=== PATIENT | female | born 1980 | race Hispanic/Latino ===

== ENCOUNTER 2018-03-11 00:11 | Emergency (ER) | payer BC, OTHER ==
[~2018-03-11] VITALS: Ht 152.4 cm; Wt 113.4 kg
[2018-03-11] MEDS ORDERED: DIPHENHYDRAMINE HCL 25 MG CAP PO ONE (00:30)
[2018-03-11] MEDS ORDERED: CLINDAMYCIN PHOS 600 MG/ 4 ML VIAL IM ONE (00:30)
[2018-03-11] MEDS ORDERED: HYDROCODONE/APAP 10MG-325MG TAB PO ONE (00:30)
== END 2018-03-11 01:09 | disposition home or self-care (01) ==
LOC: ER 00:11
DX: L03.115 Cellulitis of right lower limb (principal)
CPT/HCPCS: 99283

== ENCOUNTER 2020-04-22 17:32 | Inpatient (IN) | payer OTHER ==
[~2020-04-22] VITALS: Ht 154.9 cm; Wt 115.4 kg
--- NOTE | 2020-04-22 17:50 | Emergency Department Note ---
History of Present Illnes History of Present Illness Chief Complaint: COVID PUI History of Present Illness This is a 40 year old female increasing dyspnea since 04/15/2020 with positive findings of COVID-19 URI. Historian: Patient Arrival Mode: Car Rubber Heel And Sole Press Tender Required: No Onset (how long ago): day(s) Radiation: Reports non-radiation Severity: moderate Onset quality: gradual Duration (how long): day(s) Timing of current episode: constant Progression: worsening Chronicity: new Context: Reports recent illness Relieving factors: none Exacerbating factors: none Associated symptoms: Reports fever/chills, Reports shortness of breath Treatments prior to arrival: none (ALEJO HAY DO) Past Medical/Family History Physician Review I have reviewed the patient's past medical and family history. Any updates have been documented here. (ALEJO HAY DO) Past Medical History Recent Fever: Yes Clinical Suspicion of Infectio: Yes New/Unexplained Change in Ment: No Past Medical History: Hypertension Other Medical History: Pseudotumor cerebri sleep apnea Past Surgical History: None (ALEJO HAY DO) Social History Smoking Cessation: Never Smoker Alcohol Use: None Any Illegal Drug Use: No (ALEJO HAY DO) Other Last Tetanus: utd (ALEJO HAY DO) Review of Systems Review of Systems Constitutional: Reports fever EENTM: Reports no symptoms Cardiovascular: Reports no symptoms Respiratory: Reports dyspnea Gastrointestinal: Reports no symptoms Genitourinary: Reports no symptoms Musculoskeletal: Reports no symptoms Integumentary: Reports no symptoms Neurological: Reports no symptoms Psychological: Reports no symptoms Endocrine: Reports no symptoms Hematological/Lymphatic: Reports no symptoms (ALEJO HAY DO) Physical Exam Related Data Allergies: Coded Allergies: celecoxib (Verified Allergy, Intermediate, rash, 03/13/15) Triage Vital Signs Vital Signs Date Time Temp Pulse Resp B/P (MAP) Pulse Ox O2 Delivery O2 Flow Rate FiO2 04/22/20 17:50 100.9 114 30 161/81 97 Room Air 04/22/20 18:25 2.0 Vital signs reviewed: Yes (ALEJO HAY DO) Physical Exam CONSTITUTIONAL Constitutional: Present morbidly obese, Present ill appearing HENT HENT: Present normocephalic, Present atraumatic, Present oropharynx clear/moist, Present nose normal HENT L/R: Present left ext ear normal, Present right ext ear normal EYES Eyes: Reports PERRL, Reports conjunctivae normal NECK Neck: Present ROM normal PULMONARY Pulmonary: Present respiratory distress (mild) CARDIOVASCULAR Cardiovascular: Present regular rhythm, Present heart sounds normal, Present capillary refill normal, Present tachycardia GASTROINTESTINAL Abdominal: Present soft, Present nontender, Present bowel sounds normal GENITOURINARY Genitourinary: Present exam deferred SKIN Skin: Present warm, Present dry MUSCULOSKELETAL Musculoskeletal: Present ROM normal NEUROLOGICAL Neurological: Present alert, Present oriented x 3, Present no gross motor or sensory deficits PSYCHOLOGICAL Psychological: Present mood/affect normal, Present judgement normal (ALEJO HAY DO) Results Laboratory Laboratory Laboratory Tests Test 04/22/20 19:52 04/22/20 18:10 White Blood Count 11.47 x10e3/uL (4.8-10.8) Red Blood Count 4.50 x10e6/uL (3.6-5.1) Hemoglobin 12.0 g/dL (12.0-16.0) Hematocrit 37.3 % (34.2-44.1) Mean Corpuscular Volume 82.9 fL (81-99) Mean Corpuscular Hemoglobin 26.7 pg (28-32) Mean Corpuscular Hemoglobin Concent 32.2 g/dL (31-35) Red Cell Distribution Width 14.3 % (11.7-14.4) Platelet Count 269 x10e3/uL (140-360) Neutrophils (%) (Auto) 89.6 % (38.7-80.0) Lymphocytes (%) (Auto) 8.2 % (18.0-39.1) Monocytes (%) (Auto) 1.6 % (4.4-11.3) Eosinophils (%) (Auto) 0.0 % (0.0-6.0) Basophils (%) (Auto) 0.1 % (0.0-1.0) Neutrophils # (Auto) 10.3 (2.1-6.9) Lymphocytes # (Auto) 0.9 (1.0-3.2) Monocytes # (Auto) 0.2 (0.2-0.8) Eosinophils # (Auto) 0.0 (0.0-0.4) Basophils # (Auto) 0.0 (0.0-0.1) Absolute Immature Granulocyte (auto 0.06 x10e3/uL (0-0.1) Sodium Level 136 mmol/L (136-145) Potassium Level 3.0 mmol/L (3.5-5.1) Chloride Level 107 mmol/L (98-107) Carbon Dioxide Level 19 mmol/L (22-29) Anion Gap 13.0 mmol/L (8-16) Blood Urea Nitrogen 9 mg/dL (7-26) Creatinine 0.81 mg/dL (0.57-1.11) Estimat Glomerular Filtration Rate > 60 ML/MIN (60-) BUN/Creatinine Ratio 11 (6-25) Glucose Level 218 mg/dL (74-118) Calcium Level 8.4 mg/dL (8.4-10.2) Total Bilirubin 0.7 mg/dL (0.2-1.2) Aspartate Amino Transf (AST/SGOT) 24 IU/L (5-34) Alanine Aminotransferase (ALT/SGPT) 32 IU/L (0-55) Alkaline Phosphatase 79 IU/L (40-150) Total Protein 7.5 g/dL (6.5-8.1) Albumin 3.8 g/dL (3.5-5.0) Globulin 3.7 g/dL (2.3-3.5) Albumin/Globulin Ratio 1.0 (0.8-2.0) Human Chorionic Gonadotropin, Qual Negative (NEGATIVE) Lab results reviewed: Yes (TYLER ADORNO MD) Imaging Imaging results reviewed: Yes Impressions EXAMINATION: CT of the chest with contrast, PE protocol. TECHNIQUE: Spiral CT images of the chest were performed from the lung apices through the level of the adrenal glands after the IV administration of 100 cc of Isovue 370. Thin section reconstructions were obtained with special concentration on the pulmonary arteries. Coronal and sagittal images were performed COMPARISON: <none> CLINICAL HISTORY:COVID positive, diagnosed with pneumonia 3 days ago DISCUSSION: Exam limited by suboptimal contrast bolus timing Lungs: Despite limitations, no filling defects are identified in the main, right or left pulmonary arteries to their segmental levels, to suggest pulmonary embolism. Bilateral multifocal groundglass opacities of rounded morphology are noted in the upper and lower lungs, predominantly peripherally based,, some of which show visible intralobular lines. Some of these groundglass opacities are more confluent in the posteromedial right lower lobe, however, no definite consolidation is noted. No pulmonary nodules. Airways: <The major airways are clear.> Pleura: <There is no evidence of pleural effusion or pneumothorax.> Heart and mediastinum: Thyroid is unremarkable. Heart size is normal. No pericardial effusion. Aorta is not aneurysmal. Main pulmonary artery measures 2.9 cm. Lymph nodes: No mediastinal, hilar or axillary adenopathy. Abdomen: The visualized portions of the liver, spleen, pancreas, adrenal glands and kidneys are unremarkable. Bones and soft tissues: No aggressive lytic or suspicious focal sclerotic lesions. Soft tissues are grossly unremarkable. IMPRESSION: 1. No CT evidence of pulmonary embolism. 2. Commonly reported imaging features of COVID-19 pneumonia are present. Other processes such as influenza pneumonia and organizing pneumonia, as can be seen with drug toxicity and connected tissue disease, can cause a similar imaging pattern. Signed by: Dr. Ruthie Da Silva M.D. on 04/22/2020 8:14 PM Dictated By: RUTHIE DA SILVA MD 13 Transcribed By: MARILYN on 04/22/202013 COPY TO: ALEJO HAY DO~ (TYLER ADORNO MD) Procedures 12 Lead ECG Interpretation ECG Interpretation : ECG: ECG 1 Rubber Heel And Sole Press Tender: Interpreted by ED physician Date: Apr 22, 2020 Time: 18:25 Prior ECG tracings: reviewed Rhythm: sinus rhythm Rate: normal BPM: 98 QRS axis: normal ST segments normal: Yes T wave inversion: V1-V6 Clinical Impression: non-specific ECG (ALEJO HAY DO) Assessment & Plan Medical Decision Making MDM Diff Dx : hypoxia, COVID - 19 URI, respiratory failure, Pulmonary embolus (ALEJO HAY DO) MDM I SPOKE WITH DR ROGERS, DR Mark STALLWORTH, AND LEFT A MESSAGE FOR DR COBB (TYLER ADORNO MD) Reassessment Reassessment time: 20:43 Reassessment PT RR 28, OXYGEN SATURATION 98% ON 2LPM, CV, HEART RATE NORMAL RESPIRATORY: RHONCHI THROUGHOUT (TYLER ADORNO MD) Assessment & Plan Final Impression: (1) Dyspnea (2) Viral pneumonia (3) COVID-19 (TYLER ADORNO MD) Depart Disposition: ADMITTED Home Meds Active Scripts Apixaban (Eliquis) 2.5 Mg Tablet, 1 TAB PO BID, #30 Prov:KALYAN FORD ATTIC FANS MECHANIC 04/27/20 Albuterol Sulfate (PROVENTIL HFA) 6.7 Gm Hfa.aer.ad, 2 INH INH Q4HR PRN for SHORTNESS OF BREATH, #1 INH Prov:KALYAN FORD ATTIC FANS MECHANIC 04/27/20 Reported Medications Acetazolamide (ACETAZOLAMIDE) 500 Mg Capsule.er, 500 MG PO BID 04/23/20 ALEJO HAY DO Apr 22, 2020 17:50 TYLER ADORNO MD Apr 22, 2020 20:45
--- OUTSIDE RECORDS SUMMARY | 2020-04-22 18:14 | XMS REPORT | Continuity of Care Document ---
Author Author [facility] t Organization [facility] Address [address] [place] [address] Phone Unavailable Care Team Providers Care Thermite Bomb Loader Name Role Phone NO, PCP PCP Unavailable Ivan JENKINS, Sherine Attphys Jeanine RN, Flor Aguirre Attphys Unavailable Shira Latif Attphys Doctor Unassigned, Name No Attphys Unavailable Anna Langley MD Attphys Payers Payer Name Policy Type Policy Number Effective Date Expiration Date S [place] [employer] [facility] [id number] I [facility] Problems Condition Name Condition Details Condition Category Status Onset Date Resolution Date Last Treatment Date Treating Clinician Comments Source HNP (herniated nucleus pulposus), cervical HNP (hernia sissy nucleus pulposus), cervical Disease Active 2018-06-28 00:00:00 Kacy Botello Cervical radiculopathy Cervical radiculopathy Disease Active 2018-06-28 00:00:[address] Allergies, Adverse Reactions, Alerts Allergy Name Allergy Type Status Severity Reaction(s) Onset Date Inacti ve Date Treating Clinician Comments Source Celecoxib Propensity to adverse reactions to drug Active Itching 2018-06-28 00:00:00 Octaviano Mazariegos t Celecoxib Allergy to Substance Active Moderate rash 2015-03-13 00:00:00 [facility] Family History Family Member Diagnosis Comments Start Date Stop Date Source Natural brother Diabetes [place] [facility] Natural father Hyperlipidemia [place] Natural father Hypertension Octaviano Botello Natural mother Diabetes [place] [facility] Natural mother Heart attack Octaviano Botello Natural sister Diabetes [place] [facility] Social History Social Habit Start Date Stop Date Quantity Comments Source Sex Assigned At Kacy p[place]rez [place] Alcohol intake 2018-06-28 00:00:00 2018-06-28 00:00:00 Current drinker of alcohol (finding) Octaviano Botello Alcohol Comment 2018-06-28 00:00:00 2018-06-28 00:00:00 occasional Octaviano Botello Smoking Status Start Date Stop Date Source Never smoker Octaviano andersen Medications Ordered Medication Name Filled Medication Name Start Date Stop Da te Current Medication? Ordering Clinician Indication Dosage Frequency Signature (SIG) Comments Components Source SUMATRIPTAN SUCCINATE ORAL 2018-06-28 15:39:23 Yes Take by mouth. Octaviano Botello acetaZOLAMIDE (DIAMOX) 500 mg capsule 2018-05-26 00:00:00 Y es acetazolamide ER 500 mg capsule,extended release Octaviano Botello Procedures This patient has no known procedures. Plan of Care Planned Activity Planned Date Details Comments Source Future Scheduled Test 2020-05-09 00:00:00 INFLUENZA VACCINE [code = INFLUENZA VACCINE] Octaviano Botello Future Scheduled Test 1999 00:00:00 Screening for mara gnant neoplasm of cervix (procedure) [code = 701914210] Octaviano andersen Encounters Start Date/Time End Date/Time Encounter Type Admission Type [facility] Care Department Encounter ID Source 2020-04-16 00:00:00 2020-04-16 00:00:00 Patient Secure Ms Sherine Love [facility] [id number] 2020-04-13 00:00:00 2020-04-13 00:00:00 Telephone Terrence Solorzano [facility] [id number] 2020-03-05 00:00:00 2020-03-05 00:00:00 Telephone Shira Maurer [facility] [id number] 2020-03-04 00:00:00 2020-03-04 00:00:00 Orders Only D octor Unassigned, Macdona [facility] [id number] 2020-01-18 08:39:29 2020-01-18 10:23:15 Office Visit [facility] Kami pantoja [facility] [id number] 2018-03-11 00:11:00 2018-03-11 01:09:00 Departed Emergency Room [facility] [id number] [facility] Results This patient has no known results.
--- OUTSIDE RECORDS SUMMARY | 2020-04-22 18:14 | XMS REPORT | Clinical Summary ---
Author Author [facility] Organization [facility] Address Unknown Phone Unavailable Care Team Providers Care Food Checkers And Cashiers Supervisor Name Role Phone Ines Hughes MD PCP Allergies Comments Active Allergy Reactions Severity Noted Date Celecoxib Itching 06/28/2018 Medications End Date Status Medication Sig Dispensed Refills Start Date Active acetaZOLAMIDE (DIAMOX) acetazolamide 0 01 500 mg capsule ER 500 mg 8 capsule,exten ded release Active SUMATRIPTAN SUCCINATE Take by 0 ORAL mouth. Active Problems Problem Noted Date HNP (herniated nucleus pulposus), cervical 8 Cervical radiculopathy 06/28/2018 Family History Medical History Relation Name Comments Diabetes Brother Hyperlipidemia Father Hypertension Father Diabetes Mother Heart attack Mother Diabetes Sister Diabetes Sister Relation Name Status Comments Brother Alive Father Alive Mother Alive Sister Alive Sister Alive Social History Date Tobacco Use Types Packs/Day Years Used Never Smoker Smokeless Tobacco: Never Used Drinks/Week oz/Week Comments Alcohol Use occasional Yes Sex Assigned at Date Recorded Not on file Industry Job Start Date Occupation Not on file Not on file Not on file Travel End Travel History Travel Start No recent travel history available. Last Filed Vital Signs Not on file Plan of Treatment Health Maintenance Due Date Last Done Comments CERVICAL CANCER SCREENING 1999 INFLUENZA VACCINE 05/09/2020 Results Not on fileafter 04/22/2019 Insurance Type Payer Benefit Subscriber ID Effective Phone Address Plan / Dates Group HMO/PPO [facility] x[facility] 2018-P THCARE resent CHOICE/CHO ICE + Advance Directives For more information, please contact: [phone] Patient Banquet Steward Explanation Type Date Recorded Advance Directives, Living Will and Medical Power of Flue Gas Analyst
[2020-04-22 18:27] LABS: BASOPHILS % 0.1 % (0.0-1.0); HEMATOCRIT 37.3 % (34.2-44.1); LYMPHOCYTES # (AUTO) 0.9 (1.0-3.2); LYMPHOCYTES % 8.2 % (18.0-39.1); MEAN CORPUSCULAR HEMOGLOBIN 26.7 pg (28-32); MEAN CORPUSCULAR HGB CONC 32.2 g/dL (31-35); MEAN CORPUSCULAR VOLUME 82.9 fL (81-99); MONOCYTES # (AUTO) 0.2 (0.2-0.8); MONOCYTES % 1.6 % (4.4-11.3); NEUTROPHILS # (AUTO) 10.3 (2.1-6.9); NEUTROPHILS % 89.6 % (38.7-80.0); PLATELET COUNT 269 x10e3/uL (140-360); RED CELL DISTRIBUTION WIDTH 14.3 % (11.7-14.4)
[2020-04-22 18:46] LABS: ALANINE AMINOTRANSFERASE 32 IU/L (0-55); ALBUMIN 3.8 g/dL (3.5-5.0); ALKALINE PHOSPHATASE 79 IU/L (40-150); BLOOD UREA NITROGEN 9 mg/dL (7-26); BUN/CREATININE RATIO 11 (6-25); CALCIUM 8.4 mg/dL (8.4-10.2); CARBON DIOXIDE 19 mmol/L (22-29); CHLORIDE 107 mmol/L (98-107); CREATININE, SERUM 0.81 mg/dL (0.57-1.11); EST GLOMERULAR FILTRATION RATE > 60 ML/MIN (60-); GLUCOSE 218 mg/dL (74-118); SODIUM 136 mmol/L (136-145)
[2020-04-22] MEDS ORDERED: ACETAMINOPHEN 325 MG TAB PO STA (19:01)
--- NOTE | 2020-04-22 20:17 | Diagnostic Imaging Report ---
EXAMINATION: CT of the chest with contrast, PE protocol. TECHNIQUE: Spiral CT images of the chest were performed from the lung apices through the level of the adrenal glands after the IV administration of 100 cc of Isovue 370. Thin section reconstructions were obtained with special concentration on the pulmonary arteries. Coronal and sagittal images were performed COMPARISON: <none> CLINICAL HISTORY:COVID positive, diagnosed with pneumonia 3 days ago DISCUSSION: Exam limited by suboptimal contrast bolus timing Lungs: Despite limitations, no filling defects are identified in the main, right or left pulmonary arteries to their segmental levels, to suggest pulmonary embolism. Bilateral multifocal groundglass opacities of rounded morphology are noted in the upper and lower lungs, predominantly peripherally based,, some of which show visible intralobular lines. Some of these groundglass opacities are more confluent in the posteromedial right lower lobe, however, no definite consolidation is noted. No pulmonary nodules. Airways: <The major airways are clear.> Pleura: <There is no evidence of pleural effusion or pneumothorax.> Heart and mediastinum: Thyroid is unremarkable. Heart size is normal. No pericardial effusion. Aorta is not aneurysmal. Main pulmonary artery measures 2.9 cm. Lymph nodes: No mediastinal, hilar or axillary adenopathy. Abdomen: The visualized portions of the liver, spleen, pancreas, adrenal glands and kidneys are unremarkable. Bones and soft tissues: No aggressive lytic or suspicious focal sclerotic lesions. Soft tissues are grossly unremarkable. IMPRESSION: 1. No CT evidence of pulmonary embolism. 2. Commonly reported imaging features of COVID-19 pneumonia are present. Other processes such as influenza pneumonia and organizing pneumonia, as can be seen with drug toxicity and connected tissue disease, can cause a similar imaging pattern. Signed by: Dr. Ron Da Silva M.D. on 04/22/2020 8:14 PM
[2020-04-22] MEDS ORDERED: DEXAMETHASONE SOD PHOS 10 MG/1 ML VIAL IV ONE (20:30)
[2020-04-22] MEDS ORDERED: CEFTRIAXONE SOD 1 GM/NS 50 ML 50 ML IV ONE (20:30)
[2020-04-22] MEDS ORDERED: ASPIRIN 81 MG CHEW TAB PO ONE (20:45)
[2020-04-22] MEDS ORDERED: SODIUM CHLORIDE 0.9% 1000ML 1,000 ML IV ONE (20:45)
[2020-04-22] MEDS ORDERED: CEFTRIAXONE SOD 1 GRAM/0.9% SOD CHL 50ML BAG IV SCH (20:45)
[2020-04-22] MEDS ORDERED: AZITHROMYCIN 500MG/SOD CHL 0.9% 250ML BAG IV SCH (20:45)
[2020-04-22] MEDS ORDERED: AZITHROMYCIN 500MG/NS 250 ML 250 ML IV ONE (21:00)
[2020-04-22 21:20] LABS: CREATINE KINASE MB 0.4 ng/mL (0-5.0)
[2020-04-22] MEDS: AZITHROMYCIN 500MG/SOD CHL 0.9% 250ML BAG IV SCH (21:29)
[2020-04-22] MEDS: CEFTRIAXONE SOD 1 GM VIAL IV SCH (21:30)
[2020-04-22 23:56] LABS: CLARITY,URINE SL CLOUDY (CLEAR); COLOR,URINE YELLOW (YELLOW); LEUKOCYTE ESTERASE ,URINE NEGATIVE (NEGATIVE); NITRITE,URINE NEGATIVE (NEGATIVE)
[2020-04-22 23:57] LABS: BILIRUBIN,URINE NEGATIVE (NEGATIVE); KETONES,URINE NEGATIVE (NEGATIVE); PROTEIN,URINE DIPSTICK NEGATIVE (NEGATIVE); URINE UROBILINOGEN 1 mg/dL (0.2 - 1)
[2020-04-22 23:57] LABS: INR 0.98; PROTHROMBIN TIME 13.5 seconds (11.9-14.5)
[2020-04-22 23:58] LABS: PARTIAL THROMBOPLASTIN TIME 37.1 seconds (23.8-35.5)
[2020-04-23] VITALS (15 sets, daily range): BP systolic 91–129; BP diastolic 47–89
[2020-04-23 00:01] LABS: BACTERIA,URINE FEW /HPF; EPITHELIAL CELLS,URINE FEW /LPF; RBC,URINE 0-5 /HPF (0-5); WBC,URINE (MAN) 0-5 /HPF (0-5)
[2020-04-23] MEDS ORDERED: ACETAZOLAMIDE500 M1 PO (00:14)
[2020-04-23 05:51] LABS: BASOPHILS % 0.1 % (0.0-1.0); HEMATOCRIT 35.7 % (34.2-44.1); HEMOGLOBIN 11.4 g/dL (12.0-16.0); LYMPHOCYTES # (AUTO) 0.7 (1.0-3.2); LYMPHOCYTES % 6.5 % (18.0-39.1); MEAN CORPUSCULAR HEMOGLOBIN 27.2 pg (28-32); MEAN CORPUSCULAR HGB CONC 31.9 g/dL (31-35); MEAN CORPUSCULAR VOLUME 85.2 fL (81-99); MONOCYTES # (AUTO) 0.1 (0.2-0.8); MONOCYTES % 1.1 % (4.4-11.3); NEUTROPHILS # (AUTO) 10.4 (2.1-6.9); NEUTROPHILS % 91.9 % (38.7-80.0); PLATELET COUNT 252 x10e3/uL (140-360); RED BLOOD COUNT 4.19 x10e6/uL (3.6-5.1); RED CELL DISTRIBUTION WIDTH 14.3 % (11.7-14.4)
[2020-04-23] MEDS ORDERED: ENOXAPARIN SOD INJ 60 MG/0.6 ML SYR SC SCH (06:00)
[2020-04-23 06:13] LABS: ALANINE AMINOTRANSFERASE 28 IU/L (0-55); ALBUMIN 3.5 g/dL (3.5-5.0); ALKALINE PHOSPHATASE 80 IU/L (40-150); ANION GAP 11.8 mmol/L (8-16); BLOOD UREA NITROGEN 10 mg/dL (7-26); BUN/CREATININE RATIO 14 (6-25); CARBON DIOXIDE 19 mmol/L (22-29); CHLORIDE 111 mmol/L (98-107); CREATININE, SERUM 0.74 mg/dL (0.57-1.11); EST GLOMERULAR FILTRATION RATE > 60 ML/MIN (60-); GLUCOSE 196 mg/dL (74-118); POTASSIUM 3.8 mmol/L (3.5-5.1); SODIUM 138 mmol/L (136-145)
[2020-04-23 06:41] LABS: CREATINE KINASE MB 0.3 ng/mL (0-5.0)
--- NOTE | 2020-04-23 08:24 | Diagnostic Imaging Report ---
TECHNIQUE: Frontal view of the chest. INDICATION: ^Y ^PNA ^[id number] ^0545 ^Y COMPARISON: CT chest dated the day prior. DISCUSSION: Limited evaluation due to portable technique and patient body habitus. Lines and hardware: Overlying EKG leads are noted Heart and mediastinum: Cardiomediastinal silhouette is within normal limits. Central vascular congestion is noted. Lungs and pleura: There are ill-defined interstitial airspace opacities diffusely. Negative for large effusion or pneumothorax. Soft tissues and bones: No acute abnormality. IMPRESSION: Ill-defined bilateral interstitial airspace opacities, better evaluated on CT chest from one day earlier. Signed by: Fransico Lee MD on 04/23/2020 8:20 AM
[2020-04-23] MEDS ORDERED: ACETAMINOPHEN 325 MG TAB PO PRN (08:30)
[2020-04-23] MEDS ORDERED: ENOXAPARIN INJ 80 MG/0.8 ML SYR SC SCH ×2 (09:00)
--- NOTE | 2020-04-23 09:20 | Consultation ---
DATE OF CONSULTATION: Pulmonary Critical Care Consultation CHIEF COMPLAINT: Dyspnea, fever, malaise and positive COVID test. HISTORY OF PRESENT ILLNESS: The patient is a 40-year-old woman. She reports a sore throat and malaise for about 10-12 days. She went for an initial COVID test that was negative, but continued to have symptoms and repeated her COVID test about 8 days ago as an outpatient. It was positive. The patient now complains of shortness of breath for about 5 days. She has some low-grade fevers for 3 days. She denies nausea or vomiting. She came to the emergency department last night. Her CT scan was consistent with COVID. She received some IV fluids and oxygen. She also received some dexamethasone and now reports some improvement. PAST MEDICAL HISTORY: 1. The patient denies any prior asthma or COPD. 2. She denies diabetes. 3. She denies any prior cardiac disease. ALLERGIES: THE PATIENT IS ALLERGIC TO CELEBREX. SOCIAL HISTORY: The patient's sister is in the hospital with COVID. Her parents were also in the hospital with COVID. Her ibujdrx-se-gau also has COVID. Apparently, the family all attended a graduation libertarian with someone may have been positive for COVID. She is not an active smoker. She is not a drinker. REVIEW OF SYSTEMS: There are some fevers as noted above. There is no headache. No neck pain. She is not complaining of any chest pain. She has no wheezing. She does have some dyspnea. She has some mild cough. She has no abdominal pain. There is no nausea or vomiting. She has no leg swelling. PHYSICAL EXAMINATION: VITAL SIGNS: The patient is afebrile. The blood pressure is 95/63, saturation is 97% on 2 L. The pulse is 66. HEENT: No facial swelling or erythema. LYMPHATIC: No submandibular, cervical, or supraclavicular adenopathy. CARDIAC: Regular rate and rhythm with normal S1, S2. LUNGS: Auscultation of lungs reveals rhonchorous breath sounds bilaterally. There is no wheezing. ABDOMEN: Soft, nontender. There is no rebound or guarding. EXTREMITIES: No leg edema or calf tenderness. There is no cyanosis or clubbing. SKIN: No rashes. NEUROLOGICAL: No focal abnormalities. LABORATORY DATA: White blood cell count is 11.3. Hemoglobin is 11.4. The platelet count is 252. The BUN to creatinine ratio is 10 to 0.74. The carbon dioxide is 19 and the other electrolytes are within normal limits. The albumin is 3.5. RADIOGRAPHIC DATA: CT scan shows peripheral nodular appearing ground-glass opacities suggestive of possible COVID infection. IMPRESSION: 1. Viral pneumonia and coronavirus disease-19 infection. 2. Low serum bicarbonate. PLAN: 1. Continue the patient on oxygen at 2 L. 2. Lovenox 0.5 mg daily for deep venous thrombosis prophylaxis. 3. Continue Zithromax and Rocephin. 4. Dexamethasone. 5. Discussed remdesivir with Infectious Disease. Regan Davalos MD [facility] /[id number]
[2020-04-23] MEDS: ASCORBIC ACID 500 MG TAB PO SCH (12:51)
[2020-04-23] MEDS: CHOLECALCIFEROL 400 UNIT TAB PO SCH (12:51)
[2020-04-23] MEDS: ZINC SULFATE 220 MG CAP PO SCH (12:51)
[2020-04-23 13:12] LABS: CREATINE KINASE MB 0.4 ng/mL (0-5.0)
--- NOTE | 2020-04-23 17:50 | NUR ---
PATIENT RECEIVED FROM [facility] ICU TO OBS PER WHEEL CHAIR. ALERT AND VERBALLY RESPONSIVE, ABLE TO TRANSFER SELF FROM WHEEL CHAIR TO BED. REQUESTED AND RECEIVED A CUP OF ICE WATER. BED IN LOWER POSITION, CALL LIGHT AT REACH.
[2020-04-23] MEDS ORDERED: REMDESIVIR 200MG/NS 100ML 200 MG in SODIUM CHLORIDE 0.9% 100 ML 100 ML IV ONE (18:30)
[2020-04-23] MEDS ORDERED: HYDRALAZINE HCL 20 MG/ML VIAL IV PRN (18:45)
[2020-04-23] MEDS ORDERED: POLYETHYLENE GLYCOL 3350 17 GM PACK PO PRN (18:45)
[2020-04-23] MEDS ORDERED: TEMAZEPAM 7.5 MG CAP PO PRN (18:45)
[2020-04-23] MEDS ORDERED: ONDANSETRON HCL INJ 2MG/ML 2ML 2 MG/ML VIAL IV PRN (18:45)
[2020-04-23] MEDS ORDERED: BENZONATATE 100 MG CAP PO PRN (19:15)
[2020-04-23] MEDS: DEXAMETHASONE SOD PHOS 10 MG/1 ML VIAL IV SCH (20:26)
[2020-04-23] MEDS: CEFTRIAXONE SOD 1 GM VIAL IV SCH (20:47)
[2020-04-23] MEDS ORDERED: TEMAZEPAM 15 MG CAP PO PRN (21:00)
[2020-04-23] MEDS ORDERED: ZOLPIDEM TARTRATE 5 MG TAB PO PRN (21:00)
--- NOTE | 2020-04-23 23:00 | History and Physical ---
CONSULTING PHYSICIANS: Dr. Walter Solares with Infectious Disease and Dr. Regan Davalos with Pulmonology Critical Care Medicine. CHIEF COMPLAINT: Concern for COVID infection. HISTORY OF PRESENT ILLNESS: The patient is a 40-year-old female, admitted via the emergency department with complaints of malaise and sore throat for about 10 to 12 days. The patient reports having an initial COVID test that was negative, but had persistent signs and symptoms and did a repeat COVID test 8 days ago (4 days after the initial test) in [facility], that resulted positive. Apparently, her family attended a graduation green party with someone who may have had COVID; the patient's sister is currently in this hospital in ICU on a ventilator with COVID for the past few weeks. Her parents were both in the hospital with COVID and her brother is at home on oxygen with COVID. Her mother is also on oxygen at home. PAST MEDICAL HISTORY: Pseudotumor cerebri with intracranial hypertension, obstructive sleep apnea with use of CPAP at home, which the patient states her will bring to the hospital, 6 mm disk herniation in the neck. PAST SURGICAL HISTORY: None. FAMILY HISTORY: As per history of present illness, as well as mother, sister, and brother all have diabetes. Father has hypertension. SOCIAL HISTORY: The patient denies any use of tobacco or illicit drugs. She uses alcohol on occasion. She lives with her and 2 children. Her oldest daughter of severe aplastic anemia, (bone marrow failure) at age 6. 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 HOME MEDICATIONS: Acetazolamide (Diamox) 500 mg b.i.d. at home. REVIEW OF SYSTEMS: A 14-point review of systems was completed. CONSTITUTIONAL: Malaise, fever with low-grade temps for 2 or 3 days, running about 100.5, sore throat, shortness of breath for the last 5 days, coughing fits, especially with activity, thick white phlegm, mild chest pain, heartburn, burping, last bowel movement on 04/22. NEUROLOGIC: Headache from time to time. ENDOCRINE: Possibly "borderline diabetes." PHYSICAL EXAMINATION: VITAL SIGNS: Temperature 97.2, T-max 101.5, pulse 66, blood pressure 96/53, subsequently 111/67, respirations 22, oxygen saturation 95%. Height 5 feet 0, weight 250 pounds, BMI 48.81. GENERAL: Supine, in no acute distress. Head of bed elevated. Able to carry on conversation. LUNGS: Rhonchi throughout, on oxygen at 3 L/minute via nasal cannula. HEENT: EOMI. Moist mucous membranes. NECK: Supple. No lymphadenopathy. Thyromegaly, or JVD. CARDIOVASCULAR: Regular rate and rhythm. No murmur. ABDOMEN: Bowel sounds positive. Soft, obese. EXTREMITIES: No pitting edema. No clubbing, cyanosis, or signs of DVT. NEUROLOGICAL: GCS 15. Nonfocal. LABORATORY DATA: WBC 11.33, hemoglobin 11.4, hematocrit 35.7, platelets 252, neutrophils 91.9%. Sodium 138, potassium 3.8, chloride 111, CO2 of 19, anion gap 11.8, BUN 10, creatinine 0.74, estimated GFR greater than 60, glucose 196, calcium 8, total bilirubin 0.5, AST 19, ALT 28, alkaline phosphatase 80, total protein 7.1, albumin 3.5. HCG, qualitative negative. Cardiac enzymes x3 were negative. Creatine kinase 31, then 26, then 19. Urinalysis was negative. Urine; pH 7.5, specific gravity 1.020, negative for nitrites, negative for leukocyte esterase, few urine bacteria. On 04/22, Coronavirus PCR positive. On 04/22, blood cultures x2 and urine culture collected and pending. IMAGING/OTHER: A 12-lead EKG on 04/22, normal sinus rhythm with heart rate 98. A 12-lead ECG on 04/23, normal sinus rhythm, heart rate 66. CT of the chest on 04/22, negative for pulmonary embolism, commonly reported imaging features of COVID-19 pneumonia are present, other processes such as influenza pneumonia and organizing pneumonia can be seen with drug toxicity and connective tissue disease can cause a similar imaging pattern. On 04/23, chest x-ray, ill-defined bilateral interstitial airspace opacities, better evaluated on CT chest from one day earlier. ASSESSMENT AND PLAN: 1. Viral community-acquired pneumonia with coronavirus disease 2018, present on admission. Pulmonology/Critical Care Medicine and Infectious Disease have been consulted. Remdesivir every 24 hours has been initiated. Continue Rocephin and azithromycin IV antibiotics. Complete dexamethasone 6 mg daily. Continue Lovenox 40 mg subcu daily, ascorbic acid and zinc sulfate daily. Droplet isolation. 2. Dyspnea. Continue supplemental oxygen. Physical Therapy to eval and treat. Bathroom privileges, bedside commode. Monitor pulmonary status closely. 3. Obstructive sleep apnea. Continue use of home CPAP once her delivers it to the hospital. Can use hospital's CPAP p.r.n. at 12:00 a.m. 4. Morbid obesity with BMI 48.81. Dietary restrictions, currently on a cardiac diet. 5. Hyperglycemia, rule out type 2 diabetes mellitus. Serum blood glucose 196. Hemoglobin A1c in the morning. May need to change diet to an ADA diet and monitor fingerstick blood glucose levels if positive. 6. Pseudotumor cerebri. Monitor headaches. Monitor for any obvious signs of increased intracranial pressure. Tessalon Perles for cough. 7. Prophylaxis. Pepcid and Lovenox. Inpatient billing code [id number]. Time spent 60 minutes. Dictated by Real Duong NP MD [facility]/MODL /[id number]
--- NOTE | 2020-04-23 23:17 | NUR ---
infectious disease consultation Patient seen and examined chart reviewed CHIEF COMPLAINT: Concern for COVID infection. HISTORY OF PRESENT ILLNESS: The patient is a 40-year-old female, admitted via the emergency department with complaints of malaise and sore throat for about 10 to 12 days. The patient reports having an initial COVID test that was negative, but had persistent signs and symptoms and did a repeat COVID test 8 days ago (4 days after the initial test) in [facility], that resulted positive. Patient came to the emergency room to be evaluated Apparently, her family attended a graduation libertarian with someone who may have had COVID; the patient's sister is currently in this hospital in ICU on a ventilator with COVID for the past few weeks. Her parents were both in the hospital with COVID and her brother is at home on oxygen with COVID. Her mother is also on oxygen at home. PAST MEDICAL HISTORY: Pseudotumor cerebri with intracranial hypertension, obstructive sleep apnea with use of CPAP at home, which the patient states her will bring to the hospital, 6 mm disk herniation in the neck. PAST SURGICAL HISTORY: None. FAMILY HISTORY: As per history of present illness, as well as mother, sister, and brother all have diabetes. Father has hypertension. SOCIAL HISTORY: The patient denies any use of tobacco or illicit drugs. She uses alcohol on occasion. She lives with her and 2 children. Her oldest daughter of severe aplastic anemia, (bone marrow failure) at age 6. 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 HOME MEDICATIONS: Acetazolamide (Diamox) 500 mg b.i.d. at home. REVIEW OF SYSTEMS: A 14-point review of systems was completed. As mentioned above CONSTITUTIONAL: Malaise, fever with low-grade temps for 2 or 3 days, running about 100.5, sore throat, shortness of breath for the last 5 days, coughing fits, especially with activity, thick white phlegm, mild chest pain, heartburn, burping, last bowel movement on 04/22. NEUROLOGIC: Headache from time to time. ENDOCRINE: Possibly "borderline diabetes." PHYSICAL EXAMINATION: patient seen to be alert oriented does not seem to be in acute distress VITAL SIGNS: Temperature 97.2, T-max 101.5, pulse 66, blood pressure 96/53, subsequently 111/67, respirations 22, oxygen saturation 95%. Height 5 feet 0, weight 250 pounds, BMI 48.81. GENERAL: Supine, in no acute distress. Head of bed elevated. Able to carry on conversation. LUNGS: Rhonchi throughout, on oxygen at 3 L/minute via nasal cannula. HEENT: EOMI. Moist mucous membranes. NECK: Supple. No lymphadenopathy. Thyromegaly, or JVD. CARDIOVASCULAR: Regular rate and rhythm. No murmur. ABDOMEN: Bowel sounds positive. Soft, obese. EXTREMITIES: No pitting edema. No clubbing, cyanosis, or signs of DVT. NEUROLOGICAL: GCS 15. Nonfocal. LABORATORY DATA: WBC 11.33, hemoglobin 11.4, hematocrit 35.7, platelets 252, neutrophils 91.9%. Sodium 138, potassium 3.8, chloride 111, CO2 of 19, anion gap 11.8, BUN 10, creatinine 0.74, estimated GFR greater than 60, glucose 196, calcium 8, total bilirubin 0.5, AST 19, ALT 28, alkaline phosphatase 80, total protein 7.1, albumin 3.5. HCG, qualitative negative. Cardiac enzymes x3 were negative. Creatine kinase 31, then 26, then 19. Urinalysis was negative. Urine; pH 7.5, specific gravity 1.020, negative for nitrites, negative for leukocyte esterase, few urine bacteria. On 04/22, Coronavirus PCR positive. On 04/22, blood cultures x2 and urine culture collected and pending. IMAGING/OTHER: A 12-lead EKG on 04/22, normal sinus rhythm with heart rate 98. A 12-lead ECG on 04/23, normal sinus rhythm, heart rate 66. CT of the chest on 04/22, negative for pulmonary embolism, commonly reported imaging features of COVID-19 pneumonia are present, other processes such as influenza pneumonia and organizing pneumonia can be seen with drug toxicity and connective tissue disease can cause a similar imaging pattern. On 04/23, chest x-ray, ill-defined bilateral interstitial airspace opacities, better evaluated on CT chest from one day earlier. ASSESSMENT AND PLAN: 1. Viral community-acquired pneumonia with coronavirus disease 2019, we will put the patient on droplet and contact isolation patient is infectious for 3 weeks post onset of symptoms. Discussed with the patient about RMZV WELL CONVALESCENT PLASMA THE PATIENT IS INTERESTED IN OUR mcv BUT NOT INTERESTED IN CONVALESCENT PLASMA pATIENT IS AWARE STILL INVESTIGATIONAL DRUG PATIENT IS AWAKE BUT SIDE EFFECTS iNFORMATION WAS GIVEN WAS GIVEN PUT THE PATIENT ON OXYGEN NEEDED DEXAMETHASONE 6 MG DAILY FOR 10 DAYS lOVENOX 40 SUBCU EVERY 12 HOURS SUPPLEMENTAL MULTIVITAMIN AND VITAMIN d AND VITAMIN c AND ZINC. 2. Dyspnea. Continue supplemental oxygen. Physical Therapy to eval and treat. Bathroom privileges, bedside commode. Monitor pulmonary status closely. 3. Obstructive sleep apnea. Continue use of home CPAP once her delivers it to the hospital. Can use hospital's CPAP p.r.n. at 12:00 a.m. 4. Morbid obesity with BMI 48.81. Dietary restrictions, currently on a cardiac diet. 5. Hyperglycemia, rule out type 2 diabetes mellitus. Serum blood glucose 196. Hemoglobin A1c in the morning. DIET LOSING WEIGHT WE DISCUSSED THE PATIENT 6. Pseudotumor cerebri. Monitor headaches. Monitor for any obvious signs of increased intracranial pressure. Tessalon Perles for cough.
[2020-04-23] MEDS: AZITHROMYCIN 500MG/SOD CHL 0.9% 250ML BAG IV SCH (23:21)
[2020-04-24] VITALS (8 sets, daily range): BP systolic 97–110; BP diastolic 55–64
[2020-04-24 05:26] LABS: BASOPHILS % 0.1 % (0.0-1.0); HEMATOCRIT 34.5 % (34.2-44.1); LYMPHOCYTES # (AUTO) 0.7 (1.0-3.2); LYMPHOCYTES % 5.9 % (18.0-39.1); MEAN CORPUSCULAR HEMOGLOBIN 26.9 pg (28-32); MEAN CORPUSCULAR HGB CONC 31.9 g/dL (31-35); MEAN CORPUSCULAR VOLUME 84.4 fL (81-99); MONOCYTES # (AUTO) 0.1 (0.2-0.8); MONOCYTES % 1.1 % (4.4-11.3); NEUTROPHILS # (AUTO) 10.4 (2.1-6.9); NEUTROPHILS % 92.5 % (38.7-80.0); PLATELET COUNT 261 x10e3/uL (140-360); RED BLOOD COUNT 4.09 x10e6/uL (3.6-5.1); RED CELL DISTRIBUTION WIDTH 13.9 % (11.7-14.4)
[2020-04-24 05:50] LABS: ALANINE AMINOTRANSFERASE 26 IU/L (0-55); ALBUMIN 3.5 g/dL (3.5-5.0); ALKALINE PHOSPHATASE 76 IU/L (40-150); ANION GAP 11.6 mmol/L (8-16); BLOOD UREA NITROGEN 15 mg/dL (7-26); BUN/CREATININE RATIO 20 (6-25); CALCIUM 8.4 mg/dL (8.4-10.2); CARBON DIOXIDE 20 mmol/L (22-29); CHLORIDE 110 mmol/L (98-107); CREATININE, SERUM 0.74 mg/dL (0.57-1.11); EST GLOMERULAR FILTRATION RATE > 60 ML/MIN (60-); GLUCOSE 200 mg/dL (74-118); POTASSIUM 3.6 mmol/L (3.5-5.1); SODIUM 138 mmol/L (136-145)
[2020-04-24 05:53] LABS: CHOL/HDL RATIO 2.4 (3.0-3.6); MAGNESIUM 2.2 MG/DL (1.3-2.1); PHOSPHORUS 2.1 MG/DL (2.3-4.7)
[2020-04-24] MEDS: ENOXAPARIN SOD INJ 40 MG/0.4 ML SYR SC SCH (06:00)
[2020-04-24 06:13] LABS: THYROID STIMULATING HORMONE 0.218 uIU/mL (0.350-4.940)
--- NOTE | 2020-04-24 07:46 | Diagnostic Imaging Report ---
TECHNIQUE: Frontal view of the chest. INDICATION: 40-year-old woman with pneumonia. COMPARISON: Chest radiograph 04/23/2020. FINDINGS: LINES/TUBES/DEVICES: None. LUNGS: Decreased aeration of the lungs. Persistent patchy interstitial and bilateral airspace opacities, most prominent in the right lower lung zone. PLEURA: No pneumothorax or significant pleural effusion. HEART AND MEDIASTINUM: The cardiomediastinal silhouette is unchanged. SOFT TISSUES AND BONES: Unremarkable. IMPRESSION: Decreased aeration of the lungs. Otherwise, no significant change since 04/23/2020. Signed by: Liz Marie MD on 04/24/2020 7:43 AM
[2020-04-24] MEDS: DOCUSATE SODIUM 100 MG CAP PO SCH ×2 (08:55→16:27)
[2020-04-24] MEDS: FAMOTIDINE 20 MG/2 ML VIAL IV SCH ×2 (08:55→16:27)
[2020-04-24] MEDS: ZINC SULFATE 220 MG CAP PO SCH (08:55)
[2020-04-24] MEDS: CHOLECALCIFEROL 400 UNIT TAB PO SCH (08:55)
[2020-04-24] MEDS: ASCORBIC ACID 500 MG TAB PO SCH (08:55)
[2020-04-24] MEDS ORDERED: POTASSIUM PHOSPHATE 15 MM in SODIUM CHLORIDE 0.9% 250ML 250 ML IV ONE (09:00)
[2020-04-24] MEDS ORDERED: METFORMIN HCL 500 MG TAB CR PO ONE (09:15)
[2020-04-24] MEDS ORDERED: DEXTROSE 50% SYRINGE 50 ML IV PRN (11:15)
--- NOTE | 2020-04-24 11:27 | Progress Note ---
DATE: SUBJECTIVE: The patient feels better. She is still receiving remdesivir. PHYSICAL EXAMINATION: VITAL SIGNS: Blood pressure is 100/55, pulse is 64. Saturation is 96%. HEENT: Shows no facial swelling or erythema. LYMPHATIC: Shows no submandibular, cervical, or supraclavicular adenopathy. CARDIAC: Reveals a regular rate and rhythm with normal S1, S2. There are no murmurs or rubs. LUNGS: Auscultation of lungs reveals rhonchorous breath sounds bilaterally. There is no wheezing. ABDOMEN: Soft and nontender. There is no rebound or guarding. EXTREMITIES: Shows no leg edema or calf tenderness. There is no cyanosis or clubbing. SKIN: Shows no rashes. NEUROLOGICAL: Shows no focal abnormalities. IMPRESSION: 1. Viral pneumonia and COVID-19 infection. 2. Obstructive sleep apnea. 3. Pseudotumor cerebri. 4. Type 2 diabetes mellitus. PLAN: 1. Continue current antibiotics. 2. Complete remdesivir. 3. Complete dexamethasone. 4. Monitor blood sugars and give insulin as needed. 5. CPAP at night. Regan Davalos MD [facility]/MODL /[id number]
[2020-04-24] MEDS: INSULIN REGULAR, HUMAN 100 UNIT/1 ML 3ML VIAL SQ SCH ×3 (11:47→20:59)
[2020-04-24] MEDS: REMDESIVIR 100MG/NS 100ML 100 MG in SODIUM CHLORIDE 0.9% 100 ML 100 ML IV SCH (13:40)
[2020-04-24] MEDS ORDERED: SODIUM CHLORIDE 0.9% 250ML 250 ML ONE (13:42)
--- NOTE | 2020-04-24 17:06 | NUR ---
Skilled PT services not indicated at this time since patient is able to perform functional mobility without assistance. Thank you. Addendum: 04/24/20 at 1707 by Mendez cleaning PT Amended: Links added.
--- NOTE | 2020-04-24 20:31 | Progress Note ---
DATE: SUBJECTIVE: Ms. Bridgette Florentino is feeling better. She is still short of breath. She is on 3 L though. There is no new complaint. She is on remdesivir, Rocephin, azithromycin, and dexamethasone, vitamin D and zinc also and oxygen and Lovenox. PHYSICAL EXAMINATION: GENERAL: She is currently alert and oriented. Does not seem to be in acute distress. VITAL SIGNS: Stable, currently afebrile. HEENT: She is not icteric. NECK: Supple. CHEST: Crackles bilateral. HEART: S1 and S2. ABDOMEN: Soft. Bowel sounds present. EXTREMITIES: No edema. SKIN: No rash. IMPRESSION: COVID-19, respiratory failure. To finish the course of treatment as planned. Discussed with the patient. Answered all her question. Follow up in the morning. MD YARI Goldberg/LIVE /[id number]
[2020-04-24] MEDS: CEFTRIAXONE SOD 1 GM VIAL IV SCH (20:48)
[2020-04-24] MEDS: DEXAMETHASONE SOD PHOS 10 MG/1 ML VIAL IV SCH (20:48)
[2020-04-24] MEDS: AZITHROMYCIN 500MG/SOD CHL 0.9% 250ML BAG IV SCH (21:00)
--- NOTE | 2020-04-24 23:07 | Progress Note ---
DATE: 04/24/2020 SUBJECTIVE: The patient states she has mild chest pain with deep inspiration. She is able to achieve 1500 mL with incentive spirometry. Sore throat has improved, it is better. She does complain of right ear tinnitus or ringing of the ear. She states that she was out of bed, took a shower today. Does experience dyspnea on exertion with activity. She has coughing "fits" at times. She reports that she did not work with physical therapy at all today. Apparently, they signed off documenting that she was independent in her mobility. The patient reports that her is currently in the ER at this facility with COVID and atrial fibrillation. Her sister (Nery Decker) is in the ICU here on a ventilator with COVID. OBJECTIVE: VITAL SIGNS: Temperature 98.2, pulse 65, respirations 20, blood pressure 100/64, oxygen saturation 98%. GENERAL: Supine in bed. No acute distress. LUNGS: Respirations even, nonlabored. Oxygen at 2 L/minute via nasal cannula. HEENT: EOMI. NECK: Supple. CARDIOVASCULAR: Regular rate and rhythm. No murmur. ABDOMEN: Bowel sounds positive. Soft, obese. EXTREMITIES: No pitting edema. No clubbing, cyanosis, or signs of DVT. NEUROLOGICAL: GCS 15. Nonfocal. DIAGNOSTIC STUDIES/LABORATORY DATA: WBCs 11.19, hemoglobin 11, hematocrit 34.5, platelets 261. Sodium 138, potassium 3.6, chloride 110, CO2 20, anion gap 11.6, BUN 15, creatinine 0.74, estimated GFR greater than 60, glucose 200, hemoglobin A1c 6.7%, calcium 8.4, phosphorus 2.1, magnesium 2.2, total bilirubin 0.4, AST 20, ALT 26, alkaline phosphatase 76, total protein 7, albumin 3.5. Triglyceride 78, cholesterol 120, LDL 55, HDL 49, TSH 0.218. IMAGING: On 04/24 chest x-ray, decreased aeration of the lungs, otherwise no significant change since 04/23 chest x-ray. ASSESSMENT AND PLAN: 1. Viral community-acquired pneumonia with coronavirus disease-2019, present on admission. Pulmonary/Critical Care Medicine and Infectious Disease following. Complete Remdesivir. dexamethasone, Rocephin, azithromycin. Continue Lovenox, ascorbic acid, and zinc sulfate. Maintain droplet isolation. She does have dyspnea on exertion. Continue supplemental oxygen and wean as tolerated. Monitor pulmonary status closely. Encourage incentive spirometry. 2. Obstructive sleep apnea, home CPAP machine is at bedside. Continue to use at bedtime. 3. Controlled type 2 diabetes mellitus with hyperglycemia. Hemoglobin A1c 6.7%, newly diagnosed diabetic. Fingerstick blood glucose levels not documented. Blood glucose assessment ordered q.6 hours before meals and at bedtime at 1107 this morning. Continue low-dose insulin sliding scale, especially considering she is on the steroid, dexamethasone, metformin 500 mg p.o. daily. Cardiac diet changed to 1800-calorie ADA diet. 4. Mild acute hypophosphatemia. Phosphorus level 2.1 and potassium level 3.6. Potassium phosphate 15 millimoles IV once ordered. 5. Pseudotumor cerebri. Monitor headaches. Monitor for any obvious signs of increased intracranial pressure. Continue Tessalon Perles p.r.n. for cough. 6. Prophylaxis. Pepcid and Lovenox. Inpatient, billing code [id number], time spent 35 minutes. Dictated by Real Duong NP MD [facility]/MODL /[id number]
[2020-04-25] VITALS (9 sets, daily range): BP systolic 90–113; BP diastolic 50–74
[2020-04-25 07:16] LABS: BASOPHILS % 0.1 % (0.0-1.0); HEMATOCRIT 34.6 % (34.2-44.1); HEMOGLOBIN 10.9 g/dL (12.0-16.0); LYMPHOCYTES # (AUTO) 0.9 (1.0-3.2); LYMPHOCYTES % 13.4 % (18.0-39.1); MEAN CORPUSCULAR HEMOGLOBIN 26.3 pg (28-32); MEAN CORPUSCULAR HGB CONC 31.5 g/dL (31-35); MEAN CORPUSCULAR VOLUME 83.6 fL (81-99); MONOCYTES # (AUTO) 0.1 (0.2-0.8); NEUTROPHILS # (AUTO) 5.8 (2.1-6.9); NEUTROPHILS % 83.9 % (38.7-80.0); PLATELET COUNT 306 x10e3/uL (140-360); RED BLOOD COUNT 4.14 x10e6/uL (3.6-5.1); RED CELL DISTRIBUTION WIDTH 14.4 % (11.7-14.4)
[2020-04-25 07:34] LABS: ALANINE AMINOTRANSFERASE 32 IU/L (0-55); ALBUMIN 3.4 g/dL (3.5-5.0); ALKALINE PHOSPHATASE 72 IU/L (40-150); ANION GAP 14.8 mmol/L (8-16); BLOOD UREA NITROGEN 21 mg/dL (7-26); BUN/CREATININE RATIO 28 (6-25); CALCIUM 8.6 mg/dL (8.4-10.2); CARBON DIOXIDE 19 mmol/L (22-29); CHLORIDE 113 mmol/L (98-107); CREATININE, SERUM 0.76 mg/dL (0.57-1.11); EST GLOMERULAR FILTRATION RATE > 60 ML/MIN (60-); GLUCOSE 179 mg/dL (74-118); POTASSIUM 3.8 mmol/L (3.5-5.1); SODIUM 143 mmol/L (136-145)
[2020-04-25] MEDS: ENOXAPARIN SOD INJ 40 MG/0.4 ML SYR SC SCH (07:39)
--- NOTE | 2020-04-25 09:02 | Diagnostic Imaging Report ---
EXAMINATION: CHEST SINGLE (PORTABLE) INDICATION: Shortness breath, viral pneumonia COMPARISON: Chest radiograph 04/24/2020 FINDINGS: LINES/TUBES:None LUNGS:The lungs are moderately inflated. Unchanged bilateral lower lung predominant opacities. PLEURA:No pleural effusion or pneumothorax. MEDIASTINUM:The cardiomediastinal silhouette appears normal in size and shape. BONES/SOFT TISSUES:No acute osseous injury. ABDOMEN:No free air under the diaphragm. IMPRESSION: No significant interval change. Signed by: Krishna Sanchez MD on 04/25/2020 8:59 AM
[2020-04-25] MEDS: INSULIN REGULAR, HUMAN 100 UNIT/1 ML 3ML VIAL SQ SCH ×4 (09:30→21:00)
[2020-04-25] MEDS: ASCORBIC ACID 500 MG TAB PO SCH (09:40)
[2020-04-25] MEDS: FAMOTIDINE 20 MG/2 ML VIAL IV SCH ×2 (09:40→17:33)
[2020-04-25] MEDS: ZINC SULFATE 220 MG CAP PO SCH (09:40)
[2020-04-25] MEDS: DOCUSATE SODIUM 100 MG CAP PO SCH ×2 (09:40→17:33)
[2020-04-25] MEDS: CHOLECALCIFEROL 400 UNIT TAB PO SCH (09:40)
[2020-04-25] MEDS: METFORMIN HCL 500 MG TAB PO SCH (09:40)
--- NOTE | 2020-04-25 12:30 | Progress Note ---
DATE: SUBJECTIVE: The patient is afebrile. She feels better overall. Her oxygen has been decreased to 1.5 L. PHYSICAL EXAMINATION: VITAL SIGNS: Blood pressure is 102/50 and the pulse is 53. Saturation is 96%. HEENT: Shows no facial swelling or erythema. LYMPHATIC: Shows no submandibular, cervical, or supraclavicular adenopathy. CARDIAC: Reveals regular rate and rhythm with normal S1 and S2. LUNGS: Auscultation of lungs reveals rhonchorous breath sounds bilaterally. There is no wheezing. ABDOMEN: Soft and nontender. There is no rebound or guarding. EXTREMITIES: Shows no leg edema or calf tenderness. There is no cyanosis or clubbing. SKIN: Shows no rashes. NEUROLOGICAL: Shows no focal abnormalities. LABORATORY DATA: White blood cell count is 6.9, hemoglobin is 10.9, and the platelet count is 306. The BUN to creatinine ratio is normal and the bicarbonate is 19. The chloride is 113. IMPRESSION: 1. Viral pneumonia and COVID-19 infection. 2. Obstructive sleep apnea. 3. Diabetes. PLAN: 1. Continue oxygen during the day and CPAP at night. 2. Complete remdesivir. 3. Complete dexamethasone. 4. Complete Zithromax and Rocephin. 5. Lovenox. 6. Insulin as needed. Regan Davalos MD [facility]/MODL /[id number]
[2020-04-25] MEDS: REMDESIVIR 100MG/NS 100ML 100 MG in SODIUM CHLORIDE 0.9% 100 ML 100 ML IV SCH (14:12)
--- NOTE | 2020-04-25 16:04 | NUR ---
INFECTIOUS DISEASE PROGRESS NOTE DR. LAUREN COBB SUBJECTIVE: Ms. Bridgette Florentino is feeling better. She is still short of breath. She is on 3 LPM, now to 1.5LPM. There is no new complaint. Afebrile ROS: + fatigue, + SOB, + debility + muscle weakness (generalized) ALL 14 POINT ROS NEG UNLESS OTHERWISE NOTED PHYSICAL EXAMINATION: GENERAL: She is currently alert and oriented. Does not seem to be in acute distress. VITAL SIGNS: Stable, currently afebrile. HEENT: She is not icteric. NECK: Supple. CHEST: Crackles bilateral. HEART: S1 and S2. ABDOMEN: Soft. Bowel sounds present. EXTREMITIES: No edema. SKIN: No rash. RADIOLOGY: reviewed LABS: reviewed IMPRESSION: COVID-19 respiratory failure PNA PLAN To finish the course of treatment as planned -RMSV, Dexamethasone, Zithromax, and Rocephin Discussed with the patient Gavi Goddard MSN, RN CAMP, AGACNP-BC Lauren Cobb M.D.
--- NOTE | 2020-04-25 19:20 | NUR ---
Patient received sitting up in bed. AAO x 4. Patient had no complaints of pain. Respirations even and non-labored on 2L NC. Safety measures in place. Patient instructed to call for assistance when needed. Call light within reach.
[2020-04-25] MEDS: AZITHROMYCIN 500MG/SOD CHL 0.9% 250ML BAG IV SCH (21:08)
[2020-04-25] MEDS: DEXAMETHASONE SOD PHOS 10 MG/1 ML VIAL IV SCH (21:08)
[2020-04-25] MEDS ORDERED: SODIUM CHLORIDE 0.9% 50ML 50 ML ONE (21:38)
[2020-04-25] MEDS: CEFTRIAXONE SOD 1 GM VIAL IV SCH (22:30)
[2020-04-26] VITALS (8 sets, daily range): BP systolic 93–106; BP diastolic 55–76
--- NOTE | 2020-04-26 04:29 | NUR ---
Blood specimen sent to lab for analysis.
[2020-04-26 04:32] LABS: BASOPHILS % 0.1 % (0.0-1.0); HEMATOCRIT 35.4 % (34.2-44.1); HEMOGLOBIN 11.1 g/dL (12.0-16.0); LYMPHOCYTES # (AUTO) 1.3 (1.0-3.2); LYMPHOCYTES % 17.5 % (18.0-39.1); MEAN CORPUSCULAR HEMOGLOBIN 26.2 pg (28-32); MEAN CORPUSCULAR HGB CONC 31.4 g/dL (31-35); MEAN CORPUSCULAR VOLUME 83.7 fL (81-99); MONOCYTES # (AUTO) 0.3 (0.2-0.8); MONOCYTES % 3.5 % (4.4-11.3); NEUTROPHILS # (AUTO) 5.9 (2.1-6.9); NEUTROPHILS % 77.1 % (38.7-80.0); PLATELET COUNT 328 x10e3/uL (140-360); RED BLOOD COUNT 4.23 x10e6/uL (3.6-5.1); RED CELL DISTRIBUTION WIDTH 14.2 % (11.7-14.4)
[2020-04-26 04:51] LABS: ALANINE AMINOTRANSFERASE 44 IU/L (0-55); ALBUMIN 3.4 g/dL (3.5-5.0); ALBUMIN/GLOBULIN RATIO 1.1 (0.8-2.0); ALKALINE PHOSPHATASE 87 IU/L (40-150); ANION GAP 10.5 mmol/L (8-16); BLOOD UREA NITROGEN 24 mg/dL (7-26); BUN/CREATININE RATIO 28 (6-25); CALCIUM 8.5 mg/dL (8.4-10.2); CARBON DIOXIDE 24 mmol/L (22-29); CHLORIDE 110 mmol/L (98-107); CREATININE, SERUM 0.85 mg/dL (0.57-1.11); EST GLOMERULAR FILTRATION RATE > 60 ML/MIN (60-); GLUCOSE 189 mg/dL (74-118); POTASSIUM 3.5 mmol/L (3.5-5.1); SODIUM 141 mmol/L (136-145)
[2020-04-26] MEDS: ENOXAPARIN SOD INJ 40 MG/0.4 ML SYR SC SCH (05:56)
[2020-04-26 06:20] LABS: BAND NEUTROPHILS % (MANUAL) 2 %; LYMPHOCYTES % (MANUAL) 18 % (19-48); METAMYELOCYTES % (MANUAL) 2 % (0-0); MONOCYTES % (MANUAL) 4 % (3.4-9.0); MYELOCYTES % (MANUAL) 1 % (0-0); NEUTROPHILS % (MANUAL) 73 % (40-74)
--- NOTE | 2020-04-26 07:00 | NUR ---
Patient resting comfortably. Bed-side report given to oncoming nurse.
[2020-04-26] MEDS: INSULIN REGULAR, HUMAN 100 UNIT/1 ML 3ML VIAL SQ SCH ×4 (07:30→21:00)
--- NOTE | 2020-04-26 07:30 | NUR ---
PATIENT SITTING UP IN BED WATCHING TV, NO DISTRESS NOTED. O2 IN PLACE VIA N/C. ALL PERSONAL ITEMS CLOSE TO PATIENT. BED IN LOWER POSITION, CALL LIGHT AT REACH.
[2020-04-26] MEDS: METFORMIN HCL 500 MG TAB PO SCH (08:10)
[2020-04-26] MEDS: DOCUSATE SODIUM 100 MG CAP PO SCH ×2 (09:20→17:35)
[2020-04-26] MEDS: FAMOTIDINE 20 MG/2 ML VIAL IV SCH ×2 (09:20→17:35)
[2020-04-26] MEDS: CHOLECALCIFEROL 400 UNIT TAB PO SCH (09:21)
[2020-04-26] MEDS: ZINC SULFATE 220 MG CAP PO SCH (09:21)
[2020-04-26] MEDS: ASCORBIC ACID 500 MG TAB PO SCH (09:21)
--- NOTE | 2020-04-26 11:18 | NUR ---
PATIENT ASSISTED WITH SHOWER, LINENS CHANGED. BACK IN BED WITH CALL LIGHT AT REACH.
[2020-04-26] MEDS: REMDESIVIR 100MG/NS 100ML 100 MG in SODIUM CHLORIDE 0.9% 100 ML 100 ML IV SCH (14:10)
--- NOTE | 2020-04-26 15:51 | NUR ---
HOME O2 EVALUATION PERFORMED. PATIENT NOT ELIGIBLE FOR O2. SATURATION BETWEEN 93% AND 96% ON ROOM AIR WITH AMBULATION.
--- NOTE | 2020-04-26 15:51 | Progress Note ---
DATE: SUBJECTIVE: The patient is afebrile. She feels better. Her oxygen is down to 1.5 L. PHYSICAL EXAMINATION: VITAL SIGNS: Blood pressure is 104/76, saturation is 99% and the pulse is 55. HEENT: Shows no facial swelling or erythema. LYMPHATIC: Shows no submandibular, cervical, or supraclavicular adenopathy. CARDIAC: Reveals regular rate and rhythm with normal S1 and S2. LUNGS: Auscultation of lungs reveals clear breath sounds bilaterally. There is no wheezing. ABDOMEN: Soft and nontender. There is no rebound or guarding. EXTREMITIES: Shows no leg edema or calf tenderness. There is no cyanosis or clubbing. LABORATORY DATA: White blood cell count is 7.6 and hemoglobin is 11.1. The platelet count is 328. The BUN to creatinine ratio is 24 to 0.85. The other electrolytes are within normal limits. IMPRESSION: 1. Viral pneumonia and COVID-19 infection. 2. Obstructive sleep apnea. 3. Diabetes. PLAN: 1. The patient will complete remdesivir. 2. tomorrow. 3. Complete Zithromax and Rocephin. 4. Switch to oral dexamethasone. 5. Probable discharge home tomorrow. Regan Davalos MD [facility]/MODL /[id number]
--- NOTE | 2020-04-26 16:21 | Progress Note ---
DATE: SUBJECTIVE: Ms. Florentino is feeling better today. There are no new complaints. REVIEW OF SYSTEMS: Otherwise, HEENT: Negative. PULMONARY: Negative. CARDIAC: Negative. PHYSICAL EXAMINATION: GENERAL: She is currently alert and oriented. VITAL SIGNS: Stable, currently afebrile. HEENT: She is not icteric. NECK: Supple. CHEST: Clear. HEART: S1 and S2. ABDOMEN: Soft. IMPRESSION: COVID-19, getting better. The patient could be discharged home tomorrow after she finish the remdesivir treatment with the home oxygen per her wishes. We will ask for how much to be arranged. No other treatment at present time. Continue plan of care as ordered. If she remains hypoxemic, we will finish her course of dexamethasone, but if she resolved, then we can stop. MD YARI Goldberg/LIVE /[id number]
--- NOTE | 2020-04-26 19:15 | NUR ---
Patient received sitting up in bed. AAO x 4. No acute distress noted. Fall precautions implemented. Call light within reach.
[2020-04-26] MEDS: DEXAMETHASONE SOD PHOS 10 MG/1 ML VIAL IV SCH (21:04)
[2020-04-26] MEDS: AZITHROMYCIN 500MG/SOD CHL 0.9% 250ML BAG IV SCH (21:04)
[2020-04-26] MEDS ORDERED: SODIUM CHLORIDE 0.9% 50ML 50 ML ONE (22:37)
[2020-04-26] MEDS: CEFTRIAXONE SOD 1 GM VIAL IV SCH (22:39)
[2020-04-26] MEDS ORDERED: CEFTRIAXONE SOD 1 GM/NS 50 ML 50 ML IV ONE (22:41)
[2020-04-27 00:01] VITALS: BP 98/59
[2020-04-27] MEDS: ENOXAPARIN SOD INJ 40 MG/0.4 ML SYR SC SCH (05:19)
[2020-04-27 05:20] VITALS: BP 104/58
[2020-04-27 05:24] LABS: HEMATOCRIT 34.6 % (34.2-44.1); LYMPHOCYTES # (AUTO) 1.3 (1.0-3.2); LYMPHOCYTES % 20.7 % (18.0-39.1); MEAN CORPUSCULAR HEMOGLOBIN 26.6 pg (28-32); MEAN CORPUSCULAR HGB CONC 31.8 g/dL (31-35); MEAN CORPUSCULAR VOLUME 83.6 fL (81-99); MONOCYTES # (AUTO) 0.3 (0.2-0.8); MONOCYTES % 4.8 % (4.4-11.3); NEUTROPHILS # (AUTO) 4.7 (2.1-6.9); NEUTROPHILS % 72.3 % (38.7-80.0); PLATELET COUNT 329 x10e3/uL (140-360); RED BLOOD COUNT 4.14 x10e6/uL (3.6-5.1); RED CELL DISTRIBUTION WIDTH 14.1 % (11.7-14.4)
[2020-04-27 05:51] LABS: ALANINE AMINOTRANSFERASE 52 IU/L (0-55); ALBUMIN 3.3 g/dL (3.5-5.0); ALBUMIN/GLOBULIN RATIO 1.1 (0.8-2.0); ALKALINE PHOSPHATASE 71 IU/L (40-150); ANION GAP 12.6 mmol/L (8-16); BLOOD UREA NITROGEN 19 mg/dL (7-26); BUN/CREATININE RATIO 26 (6-25); CALCIUM 8.3 mg/dL (8.4-10.2); CARBON DIOXIDE 22 mmol/L (22-29); CHLORIDE 110 mmol/L (98-107); CREATININE, SERUM 0.72 mg/dL (0.57-1.11); EST GLOMERULAR FILTRATION RATE > 60 ML/MIN (60-); GLUCOSE 170 mg/dL (74-118); POTASSIUM 3.6 mmol/L (3.5-5.1); SODIUM 141 mmol/L (136-145)
[2020-04-27] MEDS ORDERED: ELIQUIS2.5 MG PO (06:03)
[2020-04-27] MEDS ORDERED: PROVENTIL HFA6.7 GM INH (06:03)
[2020-04-27] MEDS ORDERED: DEXAMETHASONE4 MG PO (06:03)
--- NOTE | 2020-04-27 07:00 | NUR ---
Walking rounds done. BSSR given to oncoming nurse regarding patient's status.
[2020-04-27 07:20] VITALS: BP 94/77
--- NOTE | 2020-04-27 07:20 | NUR ---
PATIENT OUT OF BED TO RECLINING CHAIR, WATCHING TV, NO COMPLAIN VOICED. ALL PERSONAL ITEMS CLOSE TO PATIENT. CALL LIGHT AT REACH.
[2020-04-27] MEDS: METFORMIN HCL 500 MG TAB PO SCH (07:30)
[2020-04-27] MEDS: INSULIN REGULAR, HUMAN 100 UNIT/1 ML 3ML VIAL SQ SCH ×2 (07:30→11:30)
[2020-04-27 07:44] VITALS: BP 94/71
--- NOTE | 2020-04-27 09:02 | NUR ---
infectious disease progress note Patient seen and examined chart reviewed DOING WELL OFF OXYGEN ROS neg pe alert nad hHEENT NEG OBESITY ABDMEN SOFT BS POS TO DC HOME WITH NO TREATMENT to see me in 3 weeks
[2020-04-27] MEDS: CHOLECALCIFEROL 400 UNIT TAB PO SCH (09:18)
[2020-04-27] MEDS: FAMOTIDINE 20 MG/2 ML VIAL IV SCH (09:18)
[2020-04-27] MEDS: ASCORBIC ACID 500 MG TAB PO SCH (09:18)
[2020-04-27] MEDS: DOCUSATE SODIUM 100 MG CAP PO SCH (09:18)
[2020-04-27] MEDS: ZINC SULFATE 220 MG CAP PO SCH (09:18)
--- NOTE | 2020-04-27 11:14 | NUR ---
PATIENT IN BED RESTING WITH NO S/S OF DISTRESS. CALL LIGHT AT REACH.
--- NOTE | 2020-04-27 11:44 | Progress Note ---
DATE: SUBJECTIVE: The patient feels better. She has no chest pain. She is not complaining of cough. She has no difficulty breathing. She is scheduled to complete remdesivir today. PHYSICAL EXAMINATION: VITAL SIGNS: Blood pressure is 94/71, saturation is 96%. HEENT: Shows no facial swelling or erythema. LYMPHATIC: Shows no submandibular, cervical, or supraclavicular adenopathy. CARDIAC: Reveals regular rate and rhythm with normal S1 and S2. LUNGS: Auscultation of lungs shows clear breath sounds bilaterally. There is no wheezing. ABDOMEN: Soft nontender. There is no rebound or guarding. EXTREMITIES: Shows no leg edema or calf tenderness. There is no cyanosis or clubbing. SKIN: Shows no rashes. NEUROLOGIC: Shows no focal abnormalities. LABORATORY DATA: White blood cell count is 6.4, hemoglobin is 11, and the platelet count is 329. The BUN to creatinine ratio is 19 to 0.72. The other electrolytes are within normal limits. IMPRESSION: 1. Viral pneumonia and coronavirus disease 2019 infection. 2. Obstructive sleep apnea. 3. Diabetes. PLAN: 1. Complete remdesivir today. 2. Discharge home. 3. The patient should have rescue inhaler at home as well as 5 days of low-dose dexamethasone. 4. Home oxygen evaluation prior to discharge. MD CARLEY Oswald/FARHANL /[id number]
[2020-04-27 11:50] VITALS: BP 130/58
--- NOTE | 2020-04-27 12:57 | NUR ---
Nutrition Screen Note RD Recommendation for Physician: -Continue ADA diet Plan of Care: RD following, monitoring for tolerance and adequacy Nutrition reason for involvement: length of stay Primary Diagnose(s): COVID-19, dyspnea, viral pneumonia PMH: Pseudotumor cerebri with intracranial hypertension, obstructive sleep apnea with use of CPAP at home, 6 mm disk herniation in the neck. Ht: 61 in Wt: 254.44 lb BMI: 48.1 kg/m2 IBW: [address] Assessment: (04/27/20) Chart reviewed. Labs and meds reviewed. Pt is a 40 year old female admitted with COVID-19, dyspnea, and viral pneumonia. Pt also had a HgbA1c of 6.7% and was found to have diabetes per chart. Unable to enter room due to isolation precautions. Attempted to call pt over the phone, but she did not answer. There are no reports of recent unintentional weight loss or decreased appetite upon admission. Per documentation, pt consumed 25-100% of meals yesterday and 50-100% from 04/23-04/25. RD is available for diet education as needed. Will continue to monitor. Current Diet: 1800 ADA Malnutrition Evaluation (04/27/20) The patient does not meet criteria for a specified degree of malnutrition at this time. Will re-evaluate at follow-up as appropriate. Diet Education Needs Assessment: RD is available for diet education as needed Nutrition Care Level: low Signed: Zaida Bennett, RD, LD
--- NOTE | 2020-04-27 13:45 | NUR ---
INFECTIOUS DISEASE PROGRESS NOTE DR. LAUREN COBB ROS: + fatigue, + SOB, + debility + muscle weakness (generalized) ALL 14 POINT ROS NEG UNLESS OTHERWISE NOTED PHYSICAL EXAMINATION: GENERAL: She is currently alert and oriented. Does not seem to be in acute distress. VITAL SIGNS: Stable, currently afebrile. HEENT: She is not icteric. NECK: Supple. CHEST: Crackles bilateral. HEART: S1 and S2. ABDOMEN: Soft. Bowel sounds present. EXTREMITIES: No edema. SKIN: No rash. RADIOLOGY: reviewed LABS: reviewed IMPRESSION: COVID-19 respiratory failure PNA PLAN okay to d/c home s/p RMSV will need to complete steroids and have inhalers at home Home 02 eval prior to d/c Gavi Goddard MSN, COMPREHENSIVE OPHTHALMOLOGIST, AGACNP-BC Lauren Cobb M.D.
[2020-04-27] MEDS: REMDESIVIR 100MG/NS 100ML 100 MG in SODIUM CHLORIDE 0.9% 100 ML 100 ML IV SCH (14:00)
[2020-04-27 15:55] VITALS: BP 100/89
--- NOTE | 2020-04-27 15:55 | NUR ---
PATIENT DISCHARGED HOME. DISCHARGE INSTRUCTIONS, PRESCRIPTIONS, AND FOLLOW UP GIVEN TO PATIENT, SHE VERBALIZED UNDERSTANDING. IV TO RIGHT AC REMOVED WITH TIP INTACT. ALL PERSONAL ITEMS TAKEN WITH PATIENT. LEFT UNIT PER WHEEL CHAIR TO FRONT LOBBY IN STABLE CONDITION.
--- NOTE | 2020-04-27 17:56 | Discharge Summary ---
ADMISSION DIAGNOSES: Coronavirus disease 2019 pneumonia, present on admission; obstructive sleep apnea; morbid obesity with a BMI of 48.81; pseudotumor cerebri. DISCHARGE DIAGNOSES: Coronavirus disease 2019 pneumonia, present on admission; obstructive sleep apnea; morbid obesity with a BMI of 48.81; pseudotumor cerebri; rule out urinary tract infection; rule out bacteremia; rule out diabetes. HISTORY: Pseudotumor cerebri with intracranial hypertension, obstructive sleep apnea with use of CPAP. SURGICAL HISTORY: None. FAMILY HISTORY: Mother, sister, and brother have diabetes. SOCIAL HISTORY: Occasional alcohol use. HOSPITAL COURSE: A 40-year-old female admitted from the emergency room with complaints of malaise and sore throat for 10 to 12 days. The patient reports having an initial COVID test which was negative, but due to persistent signs and symptoms, she did a repeat about 8 days ago and the result was positive. Apparently, her family attended a graduation republican with someone who may have had COVID. The patient's sister is currently on the ventilator in ICU for the past few weeks. Her parents were both in the hospital with COVID and her brother is at home on oxygen with COVID. On admission, her COVID test was positive. CT of the chest showed features of COVID-19 pneumonia present. Chest x-ray showed bilateral interstitial airspace opacities. Urine cultures were negative. Blood cultures were negative. The patient was started on IV antibiotics, remdesivir, Lovenox, Decadron. ID and Pulmonology were consulted. After a couple days of IV antibiotics, the patient is feeling much better. Prior to discharge, she was assessed for home oxygen and she did not qualify. She will discharge home with new prescriptions for albuterol HFA inhaler and Eliquis. The patient will follow up with primary care and ID in 1 to 2 weeks. The patient understands instructions and agrees to plan. Dictated by Shira Hastings NP MD QIAN Kruse/MODL /[id number]
== END 2020-04-27 16:22 | disposition home or self-care (01) | DRG 177 ==
LOC: ER 17:50 → ERHOLD 21:18 → COVIDICU 04-23 00:57 → IMCU 04-23 17:58
PROVIDERS: ADMIT Internal Medicine; ATTEND Internal Medicine
PROC: 8E0ZXY6 Isolation (ICD-10-PCS; 2020-04-22)
PROC: XW043E5 Introduction of Remdesivir Anti-infective into Central Vein, Percutaneous Approach, New Technology Group 5 (ICD-10-PCS; principal; 2020-04-24)
PROC: XW043E5 Introduction of Remdesivir Anti-infective into Central Vein, Percutaneous Approach, New Technology Group 5 (ICD-10-PCS; 2020-04-25)
PROC: XW043E5 Introduction of Remdesivir Anti-infective into Central Vein, Percutaneous Approach, New Technology Group 5 (ICD-10-PCS; 2020-04-26)
PROC: XW043E5 Introduction of Remdesivir Anti-infective into Central Vein, Percutaneous Approach, New Technology Group 5 (ICD-10-PCS; 2020-04-27)
DX: U07.1 COVID-19 (principal); J12.9 Viral pneumonia, unspecified; Z68.42 Body mass index [BMI] 45.0-49.9, adult; G47.33 Obstructive sleep apnea (adult) (pediatric); E66.01 Morbid (severe) obesity due to excess calories; G93.2 Benign intracranial hypertension; E11.9 Type 2 diabetes mellitus without complications; E83.39 Other disorders of phosphorus metabolism; E11.65 Type 2 diabetes mellitus with hyperglycemia
CPT/HCPCS: 36415; 71045; 71260; 80053; 80061; 81001; 82550; 82553; 82948; 83036; 83735; 84100; 84443; 84484; 84702; 85025; 85610; 85730; 87040; 87086; 93005; 96372; 97139; 99283; 99285; J0456; J0696; J1100; J1650; J1817; J7030; J7050; U0002